=== PATIENT | male | born 1980 | race American Indian/Alaskan Native ===

== ENCOUNTER 2020-06-06 15:14 | Emergency (ER) | payer BC ==
[2020-06-06 15:34] VITALS: BP 142/94
[2020-06-06] MEDS ORDERED: ACETAMINOPHEN 325 MG TAB PO ONE (15:34)
[2020-06-06] MEDS ORDERED: IBUPROFEN 800 MG TAB PO ONE (15:34)
--- NOTE | 2020-06-06 15:42 | Emergency Department Report ---
ED General Adult HPI - General Chief complaint: Sore Throat Stated complaint: SICK Time Seen by Provider: 06/06/20 15:34 Source: patient Mode of arrival: Ambulatory Limitations: No Limitations - History of Present Illness Initial comments: 39 yo AA M pt presents with complaints of sore throat, body aches, chills, and decreased appetite x 3 days. He rates his pain as a 9/10 in severity and states it worsens with swallowing. He denies any cough, SOB, chest pain, loss of taste/smell, headache, rash, or recent known sick contacts. No prior medical hx per pt. - Related Data Previous Rx's Medication Instructions Recorded Last Taken Type Amoxicillin [Trimox CAP] 500 mg PO BID 10 Days #20 capsule 06/06/20 Unknown Rx Ibuprofen [Motrin 800 MG tab] 800 mg PO Q8HR PRN #20 tablet 06/06/20 Unknown Rx Allergies Allergy/AdvReac Type Severity Reaction Status Date / Time No Known Allergies Allergy Unverified 06/06/20 15:33 ED Review of Systems ROS: Stated complaint: SICK Other details as noted in HPI Constitutional: chills, malaise, weakness. denies: diaphoresis, fever ENT: throat pain Respiratory: denies: cough, shortness of breath Cardiovascular: denies: chest pain Gastrointestinal: denies: abdominal pain, nausea, vomiting Genitourinary: denies: dysuria, frequency Musculoskeletal: denies: joint swelling, arthralgia Skin: denies: rash, lesions, change in color Neurological: denies: headache Hematological/Lymphatic: denies: swollen glands ED Past Medical Hx - Past Medical History Previous Medical History?: No - Surgical History Past Surgical History?: No - Medications Home Medications: Home Medications Medication Instructions Recorded Confirmed Last Taken Type Amoxicillin [Trimox CAP] 500 mg PO BID 10 Days #20 capsule 06/06/20 Unknown Rx Ibuprofen [Motrin 800 MG tab] 800 mg PO Q8HR PRN #20 tablet 06/06/20 Unknown Rx ED Physical Exam - General Limitations: No Limitations General appearance: alert, in no apparent distress - Head Head exam: Present: atraumatic, normocephalic - Eye Eye exam: Present: normal appearance. Absent: scleral icterus - Expanded ENT Exam Expanded Mouth exam: Present: tongue normal. Absent: drooling, trismus, muffled voice Throat exam: Positive: tonsillar erythema (bilateral ), tonsillomegaly, other (uvula is midline ). Negative: tonsillar exudate, R peritonsillar mass, L peritonsillar mass - Neck Neck exam: Present: normal inspection, full ROM - Respiratory Respiratory exam: Present: normal lung sounds bilaterally. Absent: respiratory distress - GI/Abdominal GI/Abdominal exam: Present: soft. Absent: tenderness - Extremities Exam Extremities exam: Present: full ROM - Neurological Exam Neurological exam: Present: alert, oriented X3, normal gait - Psychiatric Psychiatric exam: Present: normal affect, normal mood - Skin Skin exam: Present: warm, dry, intact, normal color. Absent: rash ED Course Vital Signs 06/06/20 06/06/20 06/06/20 15:31 15:33 16:49 Temperature 99.9 F H Pulse Rate 92 H Respiratory 20 18 Rate Blood Pressure 142/94 O2 Sat by Pulse 99 Oximetry 06/06/20 06/06/20 16:51 17:26 Temperature 99.9 F H Pulse Rate 91 H Respiratory 18 Rate Blood Pressure O2 Sat by Pulse Oximetry ED Medical Decision Making - Medical Decision Making 39 yo AA M pt presents with complaints of sore throat, body aches, chills, and decreased appetite x 3 days. He rates his pain as a 9/10 in severity and states it worsens with swallowing. He denies any cough, SOB, chest pain, loss of taste/smell, headache, rash, or recent known sick contacts. No prior medical hx per pt. Pharyngitis noted on exam. Initial vitals should low-grade fever of 99.9 and mild tachycardia with a HR of 105. After ibuprofen and tylenol, HR 91. Pain improved. Pt is well appearing and stable for d/c home. Pt to f/u with PCP. Discussed signs and sxs that should prompt immediate return to the ED in detail with pt who verbalizes understanding. Critical care attestation.: If time is entered above; I have spent that time in minutes in the direct care of this critically ill patient, excluding procedure time. ED Disposition Clinical Impression: Acute bacterial pharyngitis Disposition: - TO HOME OR SELFCARE Is pt being admited?: No Condition: Stable Instructions: Strep Throat, Adult Prescriptions: Ibuprofen [Motrin 800 MG tab] 800 mg PO Q8HR PRN #20 tablet PRN Reason: pain/fever Amoxicillin [Trimox CAP] 500 mg PO BID 10 Days #20 capsule Referrals: [facility] [Provider Group] - 3-5 Days Forms: Work/School Release Form(ED)
== END 2020-06-06 17:31 | disposition home or self-care (01) ==
LOC: ED 15:14
DX: J02.8 Acute pharyngitis due to other specified organisms (principal); Z79.2 Long term (current) use of antibiotics; Z79.899 Other long term (current) drug therapy
CPT/HCPCS: 99282